=== PATIENT | female | born 1960 | race Caucasian/White ===

== ENCOUNTER → 2020-09-20 | Outpatient (CLI) | payer MEDICARE ==
[~2020-09-20] MED LIST: ADDERALL15 MG PO; ATORVASTATIN CA20 M1 PO; LOSARTAN POTASS25 M1 PO; SYNTHROID0.15 MG PO; VICODIN ES 7501 TAB PO; WELLBUTRIN SR150 MG PO
== END | disposition home or self-care (01) ==
LOC: MAMMO 08:24
PROVIDERS: ATTEND Nurse Practitioner Family
DX: Z12.31 Encounter for screening mammogram for malignant neoplasm of breast (principal)

== ENCOUNTER → 2020-10-09 | Outpatient (CLI) | payer MEDICARE | END | disposition home or self-care (01) | LOC: COVID19 09:57 | PROVIDERS: ATTEND Surgery | DX: Z01.812 Encounter for preprocedural laboratory examination (principal); Z20.822 Contact with and (suspected) exposure to COVID-19 ==

== ENCOUNTER → 2020-10-12 | Day surgery (SDC) | payer MEDICARE ==
[~2020-10-12] VITALS: Ht 175.2 cm; Wt 95.7 kg
[2020-10-12 07:30] VITALS: BP 135/93
[2020-10-12 08:50] VITALS: BP 126/79
[2020-10-12 09:05] VITALS: BP 129/80
[2020-10-12 09:20] VITALS: BP 135/84
== END ==
LOC: SDC 10-09 12:30
PROVIDERS: ATTEND Surgery
DX: Z12.11 Encounter for screening for malignant neoplasm of colon (principal); I10 Essential (primary) hypertension; K21.9 Gastro-esophageal reflux disease without esophagitis; Z87.891 Personal history of nicotine dependence; F41.9 Anxiety disorder, unspecified; F32.9 Major depressive disorder, single episode, unspecified; F90.9 Attention-deficit hyperactivity disorder, unspecified type; Z79.899 Other long term (current) drug therapy; Z90.49 Acquired absence of other specified parts of digestive tract; Z98.890 Other specified postprocedural states
CPT/HCPCS: 00812; G0121